=== PATIENT | male | born 1965 | race Caucasian/White ===

== ENCOUNTER 2018-10-17 03:01 | Emergency (ER) | payer SELFPAY ==
[~2018-10-17] VITALS: Ht 185.4 cm; Wt 99.8 kg
[~2018-10-17 03:01] MED LIST: LISI20TA61 PO; PHEN100C4 PO
--- NOTE | 2018-10-17 03:25 | NUR ---
BIBS. C/O "WAS HAVING FEVER AND CHILLS X2 DAYS, -FEVER -CONGESTION" -SOB NOTED. AOX4. AMBULATORY. -CONGESTION.
[2018-10-17 04:15] LABS: BASOPHILS % (AUTO) 0.8 % (0.0-2.0); EOSINOPHILS % (AUTO) 1.9 % (0.0-6.0); HEMATOCRIT 46 % (39-51); HEMOGLOBIN 15.9 g/dL (13.5-17.5); LYMPHOCYTES % (AUTO) 17.7 % (20.0-44.0); MEAN CORPUSCULAR HGB CONC 34 g/dl (31.0-36.0); MEAN CORPUSCULAR VOLUME 99 fL (80-96); MONOCYTES % (AUTO) 12.4 % (2.0-12.0); NEUTROPHILS % (AUTO) 67.2 % (43.0-81.0); PLATELET COUNT (AUTO) 187 /CMM (150-450); RED BLOOD CELL COUNT(AUTO) 4.69 MIL/uL (4.5-6.0); WHITE BLOOD COUNT (AUTO) 7.7 K/uL (4.3-11.0)
[2018-10-17 04:16] LABS: BASOPHILS # (AUTO) 0.1 /CMM (0.0-0.2); LYMPHOCYTES # (AUTO) 1.4 /CMM (0.8-4.8); NEUTROPHILS # (AUTO) 5.2 /CMM (1.8-8.9)
[2018-10-17 04:18] LABS: APPEARANCE,URINE Clear (CLEAR); BILIRUBIN,URINE Negative (NEGATIVE); BLOOD, URINE Trace-lysed Ery/uL (NEGATIVE); COLOR,URINE Yellow (YELLOW); KETONES,URINE Negative (NEGATIVE); LEUKOCYTE ESTERASE ,URINE Negative (NEGATIVE); NITRITE, URINE Negative (NEGATIVE); PH,URINE 5.5 (5.0-8.0); PROTEIN,URINE Trace mg/dl (NEGATIVE); UGLUCOSE Negative (NEGATIVE); UROBILINOGEN,URINE 0.2 EU/dL (0.2)
[2018-10-17 04:33] LABS: BILIRUBIN,TOTAL 0.6 mg/dL (0.2-1.0); CALCIUM, SERUM 8.5 mg/dL (8.5-10.1)
[2018-10-17 04:34] LABS: ALBUMIN 3.9 g/dL (3.4-5.0); BILIRUBIN,DIRECT 0.1 mg/dL (0.0-0.2); TOTAL PROTEIN, SERUM 6.4 g/dL (6.4-8.2)
[2018-10-17 04:43] LABS: BACTERIA,URINE None seen /HPF (None Seen); RBC,URINE 0-2 /HPF (0-2); SQUAMOUS EPITHELIAL CELL,UR Few /HPF (None Seen); WBC,URINE 0-2 /HPF (0-3)
[2018-10-17 05:01] LABS: POTASSIUM 4.3 mmol/L (3.5-5.1)
[2018-10-17 05:49] VITALS: BP 122/71
== END 2018-10-17 05:49 | disposition home or self-care (01) ==
LOC: ER 03:06
DX: F41.9 Anxiety disorder, unspecified (principal); I10 Essential (primary) hypertension; Z98.890 Other specified postprocedural states; Z79.899 Other long term (current) drug therapy
CPT/HCPCS: 36415; 71045-TC; 80048-TC; 80076-TC; 81000-TC; 85025-TC

== ENCOUNTER 2019-04-18 06:30 | Emergency (ER) | payer SELFPAY ==
[~2019-04-18] VITALS: Ht 182.9 cm; Wt 96.2 kg
[2019-04-18 06:33] VITALS: BP 147/97
== END 2019-04-18 07:08 | disposition home or self-care (01) ==
LOC: ER 06:30
DX: J06.9 Acute upper respiratory infection, unspecified (principal); G40.909 Epilepsy, unspecified, not intractable, without status epilepticus; I10 Essential (primary) hypertension; Z98.890 Other specified postprocedural states; Z79.899 Other long term (current) drug therapy

== ENCOUNTER 2019-07-18 23:49 | Emergency (ER) | payer SELFPAY ==
[~2019-07-18] VITALS: Ht 182.9 cm; Wt 97.5 kg
[~2019-07-18 23:49] MED LIST changes: +LISI-604 PO; -LISI20TA61 PO
--- NOTE | 2019-07-19 00:25 | NUR ---
PT BIBS FOR C/O COUGH & CONGESTION & NAUSEA X5 DAYS. U WERE DIAGNOSED W/ INFLUENZA (+FLU) ON 07/14/2019. NO MEDS GIVEN. PT AAOX4, VSS, NO ACUTE DISTRESS NOTED. WILL MONITOR
[2019-07-19] MEDS ORDERED: predniSONE 20 MG TABLET ONE (00:44)
[2019-07-19] MEDS ORDERED: IPRATROPIUM NEB FS 0.5 MG/2.5 ML AMPUL.NEB ONE (00:44)
[2019-07-19] MEDS ORDERED: ALBUTEROL FS 2.5 MG/3 ML VIAL.NEB ONE (00:44)
[2019-07-19] MEDS ORDERED: IPRATROPIUM NEB FS 0.5 MG/2.5 ML AMPUL.NEB NEB ONE (01:00)
[2019-07-19] MEDS ORDERED: IV NS 0.9% 1,000 ML BAG IV ONE (01:00)
[2019-07-19] MEDS ORDERED: predniSONE 20 MG TABLET PO ONE (01:00)
[2019-07-19] MEDS ORDERED: ALBUTEROL FS 2.5 MG/3 ML VIAL.NEB NEB ONE (01:00)
[2019-07-19 01:43] VITALS: BP 121/84
--- NOTE | 2019-07-19 01:43 | NUR ---
Patient discharged to home in stable condition. Written and verbal after care instructions given. Patient verbalizes understanding of instruction.
== END 2019-07-19 01:44 | disposition home or self-care (01) ==
LOC: ER 23:53
DX: J11.1 Influenza due to unidentified influenza virus with other respiratory manifestations (principal); J98.01 Acute bronchospasm; G40.909 Epilepsy, unspecified, not intractable, without status epilepticus; I10 Essential (primary) hypertension; Z98.890 Other specified postprocedural states; Z79.899 Other long term (current) drug therapy
CPT/HCPCS: 94640; 99283; J7030; J7512

== ENCOUNTER 2019-12-31 06:06 | Emergency (ER) | payer MEDICAID ==
[~2019-12-31] VITALS: Ht 182.9 cm; Wt 10.4 kg
--- NOTE | 2019-12-31 06:10 | NUR ---
PT BIB [facility] WITH A C/O SEIZURE. PT HAS A HX OF SEIZURE. PT APPEARS ANXIOUS AND SCARED. NO ORAL TRAUMA NOTED. PT IS AA&O X3. 20G IV IN LT HAND [employer]NAGER [employer]. IV IS NOT FLUSHING. OPENED DRSG FOR IV AND IV IS NOT IN PLACE. AREA COVERED WITH 2X2 AND TAPE. NO ACTIVE BLEEDING NOTED. DR MUÑOZ IS AT THE BEDSIDE.
--- NOTE | 2019-12-31 06:20 | NUR ---
18G IV STARTED IN LAC. BLOOD WAS DRAWN AND SENT TO LAB.
[2019-12-31] MEDS ORDERED: LORAZEPAM INJ 2 MG/ML VIAL ONE (06:25)
--- NOTE | 2019-12-31 06:25 | NUR ---
PT BEGAN MUMBLING AND STARRING OFF TO THE RT. NOTIFIED. PT IS ACTIVELY SEIZING. ATIVAN 2MG IVP ORDERED BY DR MUÑOZ. PT PLACED ON NON REBREATHER.
[2019-12-31] MEDS ORDERED: LEVETIRACETAM (500MG) 500 MG/5 ML VIAL IV ONE (06:29)
[2019-12-31 06:30] LABS: BASOPHILS # (AUTO) 0.1 /CMM (0.0-0.2); BASOPHILS % (AUTO) 0.9 % (0.0-2.0); EOSINOPHILS % (AUTO) 6.8 % (0.0-6.0); HEMATOCRIT 48 % (39-51); HEMOGLOBIN 16.6 g/dL (13.5-17.5); LYMPHOCYTES # (AUTO) 1.5 /CMM (0.8-4.8); LYMPHOCYTES % (AUTO) 26.5 % (20.0-44.0); MEAN CORPUSCULAR HGB CONC 34 g/dl (31.0-36.0); MEAN CORPUSCULAR VOLUME 97 fL (80-96); MONOCYTES # (AUTO) 0.7 /CMM (0.1-1.30); NEUTROPHILS % (AUTO) 52.8 % (43.0-81.0); PLATELET COUNT (AUTO) 183 /CMM (150-450); WHITE BLOOD COUNT (AUTO) 5.7 K/uL (4.3-11.0)
[2019-12-31] MEDS ORDERED: LORAZEPAM INJ 2 MG/ML VIAL IV ONE (06:30)
[2019-12-31] MEDS ORDERED: LEVETIRACETAM (500MG) 1,000 MG in IV NS 0.9% 100 ML IV SCH (06:30)
[2019-12-31] MEDS ORDERED: IV NS 0.9% 1,000 ML BAG IV ONE (06:30)
--- NOTE | 2019-12-31 06:40 | NUR ---
BROUGHT TO CT
[2019-12-31 06:42] LABS: CALCIUM, SERUM 8.6 mg/dL (8.5-10.1); CARBON DIOXIDE 24 mmol/L (21-32); CHLORIDE 99 mmol/L (98-107); CREATININE 1.2 mg/dL (0.6-1.3); GLUCOSE 106 mg/dL (74-106); PHENYTOIN (DILANTIN) 2.2 ug/ml (10.0-20.0); POTASSIUM 3.4 mmol/L (3.5-5.1); SODIUM SERUM 134 mmol/L (136-145); UREA NITROGEN, BLOOD 13 mg/dL (7-18)
[2019-12-31 06:54] LABS: ALANINE AMINOTRANSFERASE 30 U/L (12-78); ALBUMIN 3.9 g/dL (3.4-5.0); ALCOHOL, BLOOD < 3 mg/dL (0-0); ALKALINE PHOSPHATASE 121 U/L (46-116); ASPARTATE AMINOTRANSFERASE 23 U/L (15-37); BILIRUBIN,DIRECT 0.1 mg/dL (0.0-0.2); BILIRUBIN,TOTAL 0.5 mg/dL (0.2-1.0); TOTAL PROTEIN, SERUM 6.5 g/dL (6.4-8.2)
--- NOTE | 2019-12-31 06:55 | NUR ---
PT RETURNED FROM CT.
--- NOTE | 2019-12-31 07:08 | NUR ---
PT IS STILL POSTICTAL, ON NON REBREATHER, VSS. ORAL TRAUMA NOTED.
--- NOTE | 2019-12-31 07:23 | NUR ---
BLANQUITA () CONTACT INFORMATION: [phone]
--- NOTE | 2019-12-31 07:33 | NUR ---
RECEIVED REPORT FROM JAYSON GRANT FOR HERNANDEZ, PT IS AAOX0 RESPOND TO PAIN STIMULI, ON O2 VIA NB AT 15LPM, V/S STABLE, KEPT RESTED AND COMFORTABLE, WILL CONTINUE TO MONITOR.
--- NOTE | 2019-12-31 08:16 | NUR ---
PER PT AROUND 5AM PT HAD SEIZURE EPISODE LASTED FOR AROUND 4-5MINS.
[2019-12-31] MEDS ORDERED: PHENYTOIN EXTENDED RELEASE 100 MG CAPSULE PO ONE ×3 (09:22→09:30)
[2019-12-31] MEDS ORDERED: DIVALPROEX SODIUM 250 MG TABLET.DR PO ONE (09:30)
--- NOTE | 2019-12-31 10:22 | NUR ---
IV removed. Catheter intact and site benign. Pressure and 4x4 applied to site. No bleeding noted. Patient discharged to home in stable condition. Written and verbal after care instructions given. Patient verbalizes understanding of instruction.
[2019-12-31 10:23] VITALS: BP 142/81
== END 2019-12-31 10:26 | disposition home or self-care (01) ==
LOC: ER 06:07
DX: S00.512A Abrasion of oral cavity, initial encounter (principal); G40.909 Epilepsy, unspecified, not intractable, without status epilepticus; R89.2 Abnormal level of other drugs, medicaments and biological substances in specimens from other organs, systems and tissues; I10 Essential (primary) hypertension; Z98.890 Other specified postprocedural states; Z79.899 Other long term (current) drug therapy; X58.XXXA Exposure to other specified factors, initial encounter; Y93.89 Activity, other specified; Y92.89 Other specified places as the place of occurrence of the external cause; Y99.8 Other external cause status
CPT/HCPCS: 36415; 70450; 71045; 80048; 80076; 80185; 80307; 82962; 85025; 93005; 96374; 96375; 99285; J1953 ×2; J2060; J7030 ×2; G0480